=== PATIENT | male | born 1945 | race Caucasian/White ===

== ENCOUNTER → 2017-04-03 | Day surgery (SDC) | payer MEDICARE, OTHER ==
[~2017-04-03] VITALS: Ht 180.3 cm; Wt 111.6 kg
[~2017-04-03] MED LIST: ALPHAGAN *P* 0.15 ML OPHTH; BETAPACE (GENER80 MG PO; DAILY VITE1 EACH PO; DIAMOX SEQUE500 MG PO; FLOMAX0.4 MG PO; LATANOPROST2.5 ML OPHTH; LOPRESSOR25 MG PO; SOTALOL80 MG PO; TORADOL10 MG PO; TRUSOPT 2% OPTH10 ML OPHTH; TYLENOL WITH C1 EACH PO; XARELTO20 MG PO
--- NOTE | ~2017-04-03 | OR ---
PATIENT'S NAME: ANJEL PELAYO [facility] AGE: 71 Y [address] ROOM: [place] [address] [place] [facility] [place]: 04/03/2017 OR/Procedure Report DISCHARGE DATE: FAMILY PHYSICIAN: Jaspal Barker MD ATTENDING PHYSICIAN: Jose Green SURGEON: Jose Green MD BEEF FARMER: DATE OF PROCEDURE: 04/03/2017 INDICATIONS: Atrial fibrillation refractory to antiarrhythmic drug therapy. DESCRIPTION OF PROCEDURE: The patient was brought to the preoperative suite in the fasting state and prepped and draped in normal manner. A total of 110 mg of propofol was administered through the nurse nurse navigator. Once adequate levels of sedation were obtained, 200 joules of synchronized therapy was delivered with resulted in persistent atrial fibrillation. Therefore, 300 joules and ultimately 360 joules of synchronized therapy was delivered. This resulted in sinus rhythm with sinus bradycardia. A 12-lead EKG is pending. CONCLUSION: 1. Successful sikhism of normal sinus rhythm using DC cardioversion. 2. 12-lead EKG is pending. 3. The patient will continue on anticoagulation and antiarrhythmic drug therapy. Follow up with me in the office in 2 weeks. I would like to thank Dr. Barker for the opportunity to participate in the care of Mr. Pelayo. JOSE GREEN MD DJM/modl /[id number] CC: Jaspal Barker MD d: 04/04/17 1001 t: 04/20/17 1149, OPERATIVE SUMMARY
--- NOTE | ~2017-04-03 | OR ---
PATIENT'S NAME: ANJEL PELAYO [facility] AGE: 71 Y [address] ROOM: [place] [address] LOCATION: [facility] [place] ADMIT DATE: 04/03/2017 OR/Procedure Report DISCHARGE DATE: FAMILY PHYSICIAN: Jaspal Barker MD ATTENDING PHYSICIAN: Alex Green SURGEON: Alex Green MD CADDIE: DATE OF PROCEDURE: 04/03/2017 PROCEDURE PERFORMED: Cardioversion. INDICATION: Atrial fibrillation, refractory to antiarrhythmic drug therapy. DESCRIPTION OF PROCEDURE: Mr. Pelayo was brought to the preoperative suite in the fasting state and prepped and draped in the normal manner. Sedation was carried out by Javed Morley nurse brush sander, and 110 mg of propofol was administered. Subsequently, 200 joules followed by 300 joules was delivered with persistence of atrial fibrillation. Therefore, 360 joules was administered with prompt scientologist of sinus rhythm with sinus bradycardia. 12-lead EKG is pending. CONCLUSION: 1. Successful scientologist of normal sinus rhythm using direct current cardioversion. 2. The patient will continue antiarrhythmic drug therapy as well as long- term anticoagulation. 3. The patient will follow up with me in outpatient clinic in 2 weeks. I would like to thank Dr. Jaspal Barker for the opportunity to participate in the care of Mr. Pelayo. ALEX GREEN MD DJM/modl /[id number] d: 04/11/17 1701 t: 04/20/17 1151, OPERATIVE SUMMARY
== END | disposition disaster alternative care site (69) ==
LOC: GPOC 03-31 14:00 → GSDC 07:46 → GPOC 08:00
DX: I48.1 Persistent atrial fibrillation (principal); E78.00 Pure hypercholesterolemia, unspecified; E66.9 Obesity, unspecified; Z68.34 Body mass index [BMI] 34.0-34.9, adult; E78.5 Hyperlipidemia, unspecified; Z87.891 Personal history of nicotine dependence; Z98.41 Cataract extraction status, right eye; Z98.42 Cataract extraction status, left eye; Z98.890 Other specified postprocedural states; Z79.01 Long term (current) use of anticoagulants; Z79.899 Other long term (current) drug therapy
CPT/HCPCS: J2001; J7030

== ENCOUNTER 2017-04-23 01:10 | Emergency (ER) | payer MEDICARE, OTHER ==
--- NOTE | ~2017-04-23 | ER ---
PATIENT'S NAME: ANJEL PELAYO [facility] AGE: 71 Y [address] ROOM: [place] [address] LOCATION: [facility] ADMIT DATE: 04/23/2017 ER/Outpatient Report DISCHARGE DATE: FAMILY PHYSICIAN: Jaspal Barker MD ATTENDING PHYSICIAN: Shabnam Wiggins HISTORY OF PRESENT ILLNESS: This is a 71-year-old male, who presents today with chief complaint of right lower back pain. It started approximately 1 hour ago. He says it woke him up from sleep. He says he has a history of kidney stones but that was back in the 1970s, so he does not really remember. He said he thinks he had lithotripsy for it. He says this feels kind of similar, but a lot worse. He reports his pain as a 10/10. He was unable to keep still, also with some nausea without any vomiting. He thinks it is mostly from pain. Denies any chest pain or shortness of breath. He has no pain with urination. No urinary frequency. No urgency. He denies any hematuria either. No constipation. No diarrhea. No other complaints at this time. He denies any abdominal pain. He says it is in the right lower back. PAST MEDICAL HISTORY: Includes atrial fibrillation for which he takes Xarelto, history of kidney stones in , history of hypertension, detached retina. PAST SURGICAL HISTORY: Includes right eye retina surgery, right shoulder repair. SOCIAL HISTORY: He does not smoke, drink or use any drugs. MEDICATIONS: Please see med list. ALLERGIES: MORPHINE. REVIEW OF SYSTEMS: Reviewed by me and negative with exception of those discussed in HPI. PHYSICAL EXAMINATION: VITAL SIGNS: He is 5 feet 11 inches. His weight is 113 kilos. Blood pressure 115/66, heart rate 88, respiratory rate 16, temperature 98, saturation 96% on room air. GENERAL: The patient looks uncomfortable. He is not actively vomiting or retching. He is mildly diaphoretic. He is not pale though, not clutching his chest. PATIENT'S NAME: ANJEL PELAYO [facility] AGE: 71 Y [address] ROOM: [place], [place] [address] LOCATION: [facility] ADMIT DATE: 04/23/2017 ER/Outpatient Report DISCHARGE DATE: FAMILY PHYSICIAN: Jaspal Barker MD ATTENDING PHYSICIAN: Shabnam Wiggins HEENT: Pupils are equal and reactive to light. HEART: His heart rate is currently 92 beats per minute. Regular. He is not hypertensive. LUNGS: His lung sounds are clear. ABDOMEN: Soft, nontender. He has no rebound or guarding. No epigastric tenderness. No right upper quadrant tenderness. No right lower quadrant tenderness. No left lower quadrant tenderness. No suprapubic tenderness. He has no pulsatile mass. He does have right CVA tenderness. No left CVA tenderness. EXTREMITIES: Moves all extremities without any difficulty. Gait is within normal limits. LABORATORY DATA: We collected a urine which was pink in nature. He obviously now has hematuria. We also checked some blood work. The urine shows is red, leuks are 25, nitrites are negative. Ketones negative. Blood is 250 and then the urine diff showed 5-10 wbc's, packed field rbc's, 0-2 epithelial cells, and negative for bacteria. CBC shows a white count of 11.6, H and H is 15.1/43.6, platelets are 245. No bandemia. CMS shows sodium of 144, potassium 3.8, chloride 115, CO2 22, anion gap is 10.8, glucose 109, BUN 19, creatinine 0.8, alkaline phosphatase is 51, AST is 18, ALT is 22, GFR is greater than 90. Procalcitonin is 0.5. IMAGING DATA: We did a CT of abdomen and pelvis with noncontrast which shows bilateral nephrolithiasis and also now mild proximal hydroureteronephrosis secondary to 5 mm calculus in the proximal ureter. EMERGENCY ROOM COURSE: I gathered these results and went back to discuss with the patient. He says his pain has completely gone after receiving Toradol and a liter of fluids. He was observed here for 2 hours. He says his pain was controlled. He felt okay going home. He does not have any signs of infection. His lab work was pretty unremarkable except for the UA. I think he will be okay going home, however, the stone is in the proximal ureter and will take time to pass. I did say that if he has worsening pain that he cannot control with the Toradol prescription that I am going to give him and also the Flomax that help him pass, he can always come back to the ER. I gave him precautions to return if fever or worsening pain, etc., he understands the reasons to come back to the ER sooner. IMPRESSION: Kidney stone. PATIENT'S NAME: ANJEL PELAYO [facility] AGE: 71 Y [address] ROOM: [place] [address] LOCATION: [facility] ADMIT DATE: 04/23/2017 ER/Outpatient Report DISCHARGE DATE: FAMILY PHYSICIAN: Jaspal Barker MD ATTENDING PHYSICIAN: Shabnam Wiggins SHABNAM WIGGINS MD CAW/modl /[id number] d: 04/23/17 0514 t: 04/24/17 0407, OUTPATIENT REPORT
[~2017-04-23 01:10] MED LIST changes: -BETAPACE (GENER80 MG PO; -FLOMAX0.4 MG PO; -TORADOL10 MG PO; -TYLENOL WITH C1 EACH PO
[2017-04-23 01:28] LABS: BILIRUBIN URINE NEGATIVE (NEGATIVE); BLOOD URINE 250 /UL (NEGATIVE); COLOR URINE RED (YELLOW); GLUCOSE URINE NEGATIVE (NEGATIVE); KETONE URINE NEGATIVE (NEGATIVE); LEUKOCYTES URINE 25 /UL (NEGATIVE); NITRITE URINE NEGATIVE (NEGATIVE); PH URINE 6.5 (4.0-8.0); PROTEIN URINE 30 mg/dL (NEGATIVE); SPEC GRAVITY URINE 1.015 (1.003-1.035); TURBIDITY URINE 3+ (CLEAR); UROBILINOGEN URINE NORMAL (NORMAL)
[2017-04-23 01:36] LABS: EPITHELIAL URINE 0-2 #/HPF (NEGATIVE); RBC URINE PACKED FIELD #/HPF (NEGATIVE)
[2017-04-23 01:37] LABS: BACTERIA URINE NEGATIVE (NEGATIVE)
[2017-04-23 02:26] LABS: BASOPHIL # 0.1 K/uL (0.0-0.2); BASOPHIL % 0.8 %; EOSINOPHIL # 0.3 K/uL (0.0-0.5); EOSINOPHIL % 2.9 %; HEMATOCRIT 43.6 % (37.0-53.0); HEMOGLOBIN 15.1 g/dL (11.0-16.0); IMMATURE GRANULOCYTE # 0.1 K/uL (0.0-0.3); IMMATURE GRANULOCYTE % 0.4 %; LYMPHOCYTE # 2.9 K/uL (0.8-4.0); LYMPHOCYTE % 24.6 %; MCH 31.3 pg (27.0-34.0); MCHC 34.6 gm/dL (32.0-36.5); MCV 90.3 fl (83.0-98.0); MONOCYTE # 1.1 K/uL (0.0-1.0); MONOCYTE % 9.5 %; MPV 12.1 fl (9.4-12.4); NEUTROPHIL # (ANC) 7.1 K/uL (1.4-9.0); NEUTROPHIL % 61.8 %; NRBC % 0 /100WBC (0-0.00); PLATELET COUNT 245 K/uL (150-450); RBC 4.83 M/uL (3.50-5.50); RDW-CV 14.8 % (11.9-14.6); WBC 11.6 K/uL (4.0-11.0)
[2017-04-23 02:41] LABS: ALBUMIN 3.8 gm/dL (3.5-5.0); ALK PHOS 51 IU/L (33-138); ALT 22 IU/L (12-78); ANION GAP 10.8 (10.0-19.0); AST 18 IU/L (10-40); BLOOD UREA NITROGEN 19 mg/dL (6-24); CALCIUM 8.7 mg/dL (8.5-10.5); CHLORIDE 115 mMol/L (96-110); CO2 22 mMol/L (22-32); CREATININE 0.8 mg/dL (0.6-1.3); POTASSIUM 3.8 mMol/L (3.7-5.1); SODIUM 144 mMol/L (135-145); TOTAL BILIRUBIN 0.5 mg/dL (0.0-1.5); TOTAL PROTEIN 7.6 g/dL (6.0-8.4)
[2017-04-25] MEDS ORDERED: BETAPACE (GENER80 MG PO (13:57)
[2017-04-25] MEDS ORDERED: TORADOL10 MG PO (13:59)
[2017-04-25] MEDS ORDERED: FLOMAX0.4 MG PO (13:59)
[2017-05-09] MEDS ORDERED: TYLENOL WITH C1 EACH PO (15:04)
== END 2017-04-23 03:39 | disposition disaster alternative care site (69) ==
LOC: GMED 01:10
PROVIDERS: Emergency Medicine
DX: N13.2 Hydronephrosis with renal and ureteral calculous obstruction (principal); I48.91 Unspecified atrial fibrillation; I10 Essential (primary) hypertension; Z88.5 Allergy status to narcotic agent
CPT/HCPCS: J1885; J7030

== ENCOUNTER 2017-04-26 07:53 | Day surgery (SDC) | payer MEDICARE, OTHER ==
[~2017-04-26] VITALS: Ht 180.3 cm; Wt 114.8 kg
--- NOTE | ~2017-04-26 | OR ---
PATIENT'S NAME: ANJEL PELAYO [facility] AGE: 71 Y [address] ROOM: [place] [address] [place] [facility] [place] DATE: 04/26/2017 OR/Procedure Report DISCHARGE DATE: FAMILY PHYSICIAN: Jaspal Barker MD ATTENDING PHYSICIAN: Charles Marion SURGEON: Charles Marion MD CONTENT DESIGNER: DATE OF PROCEDURE: 04/26/2017 PREOPERATIVE DIAGNOSES: 1. Right ureteral stent. 2. Left nephrolithiasis. POSTOPERATIVE DIAGNOSES: 1. Right ureteral stent. 2. Left nephrolithiasis. PROCEDURES PERFORMED: Cystoscopy with right stent placement. ANESTHESIA: General. COMPLICATIONS: None. INDICATION FOR PROCEDURE: The patient is a 71-year-old male with a 5-mm proximal right ureteral stone with pain and obstruction. He was also noted to have an 8-mm nonobstructing left renal pelvic stone. The patient is currently on Xarelto. We will proceed with cystoscopy with right stent placement, and then follow up bilateral ESWL and stent removal in the future. DETAILS OF PROCEDURE: After informed consent was obtained, the patient was taken to the operating room. A MAC anesthetic was applied. He was placed in the dorsal lithotomy position. The groin area was prepped and draped in normal sterile fashion. Cystoscope was introduced into the urethra and bladder without difficulty. The right ureteral orifice was identified and cannulated with a guidewire up into the renal pelvis. Next, a 6-Latvian multi- length ureteral stent was passed over the guidewire up into the renal pelvis. Radiographic imaging showed good position of the stent. The patient tolerated the procedure well, and was transferred to the recovery room in good condition. CHARLES MARION MD PATIENT'S NAME: ANJEL PELAYO [facility] AGE: 71 Y [address] ROOM: [place] [address] LOC[place]: [facility] [place]MIT DATE: 04/26/2017 OR/Procedure Report DISCHARGE DATE: FAMILY PHYSICIAN: Jaspal Barker MD ATTENDING PHYSICIAN: Charles Marion OLYA/modl /[id number] d: 04/26/17 1324 t: 05/16/17 1645, OPERATIVE SUMMARY
[~2017-04-26 07:53] MED LIST changes: +BETAPACE (GENER80 MG PO; +FLOMAX0.4 MG PO; +TORADOL10 MG PO
[2017-04-26] MEDS ORDERED: TYLENOL WITH C1 EACH PO (11:14)
[2017-05-09] MEDS ORDERED: TYLENOL WITH C1 EACH PO (15:04)
== END 2017-04-26 12:45 | disposition disaster alternative care site (69) ==
LOC: GSDC 07:53
PROC: 0T768DZ Dilation of Right Ureter with Intraluminal Device, Via Natural or Artificial Opening Endoscopic (ICD-10-PCS; principal; 2017-04-26)
DX: N13.2 Hydronephrosis with renal and ureteral calculous obstruction (principal); I48.91 Unspecified atrial fibrillation; I10 Essential (primary) hypertension; Z79.01 Long term (current) use of anticoagulants; Z88.5 Allergy status to narcotic agent; Z79.899 Other long term (current) drug therapy; Z98.890 Other specified postprocedural states
CPT/HCPCS: C1769; J1956; J2001; J7030

== ENCOUNTER → 2017-05-09 | Day surgery (SDC) | payer MEDICARE, OTHER ==
[~2017-05-09] VITALS: Ht 180.3 cm; Wt 111.0 kg
[~2017-05-09] MED LIST changes: +TYLENOL WITH C1 EACH PO
--- NOTE | ~2017-05-09 | OR ---
PATIENT'S NAME: ANJEL PELAYO [facility] AGE: 71 Y [address] ROOM: [place] [address] LOCATION: [facility] [place] ADMIT DATE: 05/09/2017 OR/Procedure Report DISCHARGE DATE: FAMILY PHYSICIAN: Jaspal Barker MD ATTENDING PHYSICIAN: Melinda Marion SURGEON: Melinda Marion MD EXTRUSION DIE REPAIRER: DATE OF PROCEDURE: 05/09/2017 PREOPERATIVE DIAGNOSIS: Bilateral nephrolithiasis. POSTOPERATIVE DIAGNOSIS: Bilateral nephrolithiasis. PROCEDURES PERFORMED: 1. Bilateral ESWL. 2. Cystoscopy with stent removal. ANESTHESIA: MAC. COMPLICATIONS: None. INDICATION FOR PROCEDURE: The patient is a 71-year-old male with a 5 mm right renal stone. He also has an 8 mm nonobstructing left renal pelvic stone. Initially, his right-sided stone was stuck in the proximal ureter and he is status post cystoscopy with stone manipulation and stent placement. The patient now presents for definitive therapy. DETAILS OF PROCEDURE: After informed consent obtained, the patient was taken to the operating room. A MAC anesthetic was applied. He was placed in the supine position on the lithotripsy table. Fluoroscopy was used to target his right renal pelvic stone. He received shocks starting at 16 kilovolts and gradually increased to 24 kilovolts. The patient received a total of 2500 shocks with good fragmentation of the stone. The groin area was prepped and draped in normal sterile fashion. A flexible cystoscope was introduced into the urethra and bladder without difficulty. His stent was identified in the right ureteral orifice engaged with forceps and removed. The patient was then rotated on the lithotripsy table. Fluoroscopy was then used again to target his left-sided stone. He received shocks starting at 16 kilovolts and gradually increased to 22 kilovolts. The patient received a total of 2000 shocks and his stone appeared to fragment well with treatment. The patient tolerated his procedures well and transferred to recovery room in good condition. PATIENT'S NAME: ANJEL PELAYO [facility] AGE: 71 Y [address] ROOM: [place] [address] LOCATION: [facility] [place] ADMIT DATE: 05/09/2017 OR/Procedure Report DISCHARGE DATE: FAMILY PHYSICIAN: Jaspal Barker MD ATTENDING PHYSICIAN: Melinda Marion MD OLYA ESPINOZA/анна /[id number] CC: Jaspal Barker MD d: 05/09/172010 t: 05/16/17 [facility], OPERATIVE SUMMARY
== END | disposition disaster alternative care site (69) ==
LOC: GSDC 07:00
PROC: 0TP98DZ Removal of Intraluminal Device from Ureter, Via Natural or Artificial Opening Endoscopic (ICD-10-PCS; principal; 2017-05-09)
PROC: 0TF4XZZ Fragmentation in Left Kidney Pelvis, External Approach (ICD-10-PCS; 2017-05-09)
PROC: 0TF3XZZ Fragmentation in Right Kidney Pelvis, External Approach (ICD-10-PCS; 2017-05-09)
DX: N13.2 Hydronephrosis with renal and ureteral calculous obstruction (principal); I48.91 Unspecified atrial fibrillation; I10 Essential (primary) hypertension; Z79.01 Long term (current) use of anticoagulants; Z88.5 Allergy status to narcotic agent; Z98.890 Other specified postprocedural states
CPT/HCPCS: J1956; J2001; J2405; J7120